=== PATIENT | female | born 1980 | race Caucasian/White ===

== ENCOUNTER 2022-03-14 13:53 | Emergency (ER) | payer OTHER, SELFPAY ==
--- NOTE | 2022-03-14 13:55 | ED.URI ---
HPI - URI/Sore Throat General Chief Complaint: Upper Respiratory Infection Stated Complaint: Sore Throat Time Seen by Provider: 03/14/22 14:30 Source: patient and RN notes reviewed Mode of arrival: ambulatory Limitations: no limitations History of Present Illness HPI Narrative: 41-year-old female presents with concern for sore throat, feels like she is swallowing razors . Reports she has had slight rhinorrhea. She reports her had similar symptoms. She reports has been feeling feverish, she has not taken her temperature. She denies cough, shortness of breath, nasal congestion, headache, gastrointestinal symptoms. MD elicited complaint: sore throat and rhinorrhea Related Data Home Medications Medication Instructions Recorded Confirmed levothyroxine 150 mcg capsule 150 mcg PO DAILY 03/14/22 03/14/22 rosuvastatin 10 mg tablet 10 mg PO DAILY 03/14/22 03/14/22 Allergies Allergy/AdvReac Type Severity Reaction Status Date / Time iohexol Allergy Dyspnea / Verified 03/14/22 14:15 [From contrast - CT, X-RAY] SOB Review of Systems Review of Systems: CONSTITUTIONAL: Reports malaise, tactile fever EYES: Denies visual changes, redness, or discharge. ENT: Reports rhinorrhea, sore throat, painful swallowing. Denies congestion, sinus pain, otalgia CARDIOVASCULAR: Denies chest pain, palpitations, or edema. RESPIRATORY: Denies cough. Denies dyspnea. GASTROINTESTINAL: Denies abdominal pain, nausea, vomiting, diarrhea SKIN: Denies rash or itching. MUSCULOSKELETAL: Denies myalgia. NEUROLOGIC: Denies headache. All systems reviewed & are unremarkable except as noted in HPI and below PMFSH Comments At time of signature, agree with nursing past medical, surgical, social and family history. There is no relevant family history pertinent to the presenting complaint Exam Narrative: GENERAL: Well-appearing, well-nourished, and in no acute distress. HEAD: Normocephalic EYES: PERRLA, conjunctivae clear ENT: Nares clear, clear discharge. Mucous membranes moist. TM pearly logan with dull light reflex bilaterally; no tragal tenderness. Oropharynx not erythematous without lesions. Tonsils not enlarged and without exudate, no drooling, no hoarseness, no trismus, uvula midline. NECK: Supple. No lymphadenopathy CHEST: Clear to auscultation, breath sounds equal. No wheezing, rhonchi, rales, or stridor. No respiratory distress, speaks in full sentences. HEART: Regular rate and rhythm. No murmur heard. SKIN: Warm, dry, no rash. NEURO: Alert and oriented x3. PSYCH: Normal mood and affect Course Course Emergency Course: Discussed benefits versus risks of paxlovid, patient would like to try paxlovid Patient is aware of diagnosis, understands and agrees to treatment plan. Anticipatory guidance given. Patient agrees to follow-up as directed and is aware of reasons to seek care at the emergency department. Portions of this record may have been created with voice recognition software Level of Care: Express Care Visit Vital Signs Vital signs: Vital Signs Temperature 100.1 F H 03/14/22 13:59 Pulse Rate 63 03/14/22 13:59 Respiratory Rate 18 03/14/22 13:59 Blood Pressure 115/74 03/14/22 13:59 Pulse Oximetry 100 03/14/22 13:59 Oxygen Delivery Room Air 03/14/22 13:59 Temperature 100.1 F H 03/14/22 13:59 Pulse Rate 63 03/14/22 13:59 Respiratory Rate 18 03/14/22 13:59 Blood Pressure 115/74 03/14/22 13:59 Pulse Oximetry 100 03/14/22 13:59 Oxygen Delivery Room Air 03/14/22 13:59 Reviewed. MDM - URI/Sore Throat MDM Narrative Medical decision making narrative: Differential diagnosis considered: Casarez virus, strep pharyngitis, allergic rhinitis, upper respiratory tract infection, sinusitis, rhinosinusitis, nasopharyngitis. viral pharyngitis, otitis media, otitis externa, pneumonia, bronchitis, viral cough syndrome, viral syndrome, and influenza. Exam findings show no acute concerns or changes; patient is
[2022-03-14 13:59] VITALS: BP 115/74; PULSE 63; RESP 18; TEMP 37.8; O2SAT 100
== END 2022-03-14 14:51 | disposition home or self-care (01) ==
PROVIDERS: Emergency Provider Nurse Practitioner; PCP Family Medicine
DX: U07.1 COVID-19 (principal); E03.9 Hypothyroidism, unspecified; J45.909 Unspecified asthma, uncomplicated; R01.1 Cardiac murmur, unspecified
CPT/HCPCS: 87081; 87426; 87880; 99203; C9803; G0463

== ENCOUNTER 2022-06-22 10:59 | Emergency (ER) | payer OTHER, SELFPAY ==
[2022-06-22 11:09] VITALS: BP 123/83; PULSE 86; RESP 16; TEMP 37.1; O2SAT 99
--- NOTE | 2022-06-22 12:18 | ED.URI ---
HPI - URI/Sore Throat General Chief Complaint: Upper Respiratory Infection Stated Complaint: cough fever congestion Time Seen by Provider: 06/22/22 12:18 Source: patient, RN notes reviewed and old records reviewed Mode of arrival: ambulatory Limitations: no limitations History of Present Illness HPI Narrative: 42-year-old female presents to the [facility] with complaints of cough, fever and congestion for 3 days. reports that she had 103 fever. Has taken Mucinex. MD elicited complaint: fever, cough and nasal congestion Related Data Home Medications Medication Instructions Recorded Confirmed levothyroxine 150 mcg capsule 150 mcg PO DAILY 03/14/22 06/22/22 rosuvastatin 10 mg tablet 10 mg PO DAILY 03/14/22 06/22/22 Allergies Allergy/AdvReac Type Severity Reaction Status Date / Time iohexol Allergy Dyspnea / Verified 06/22/22 11:28 [From contrast - CT, X-RAY] SOB Review of Systems Review of Systems: All systems reviewed & are unremarkable except as noted in HPI and below Constitutional: Constitutional: Reports as per HPI, Denies chills and Reports fever(s) Eyes: Eyes: Reports no additional eye complaints ENT: Reports as per HPI and Reports nasal congestion Cardiovascular: Cardiovascular: Reports no additional cardiovascular complaints Respiratory: Respiratory: Reports as per HPI, Reports chest congestion, Reports cough, Denies dyspnea and Denies wheezing Gastrointestinal: Gastrointestinal: Reports no additional gastrointestinal complaints Musculoskeletal: Musculoskeletal: Reports no additional musculoskeletal complaints Integumentary/Breasts: Skin/Breast: Reports system reviewed and no additional complaints, except as docu Neurologic: Reports system reviewed and no additional complaints, except as documented Psychiatric: Psychiatric: Reports no additional psychiatric complaints Allergic/Immunologic: Allergic/Immunologic: Reports no additional allergic/immunologic complaints PMFSH Social History Social History Smoking status: Current every day smoker Tobacco type: e-cigarettes/vaping Comments At the time of my signature, I reviewed and agree with the nursing past medical, surgical, social, and family history. There is no relevant family history pertinent to the patient complaint. Exam Const: General: healthy appearing, comfortable, no acute distress, well developed, alert and well nourished Nutritional Appearance: well nourished Orientation/consciousness: patient oriented x3 Limitations: no limitations HENMT: Head: normal to inspection Ears: external ears normal, TM's normal bilaterally and EAC's normal Face/Nose/Sinus: Normal external nose present and Normal nares present Face and sinus: normal facial exam Mouth: Yes Normal oral and palatal mucosa present, Yes lip normal and Yes moist mucous membranes Throat: posterior oropharynx normal and uvula midline Eyes: General: appearance normal, both eyes and all related structures Pupils: Equal, round and reactive pupils present Neck: Neck: normal visual inspection, full ROM, no lymphadenopathy and no meningeal signs Chest: Chest palpation & inspection: normal inspection of the chest Resp: Effort & Inspection: normal respiratory effort and no use of accessory muscles Auscultation: clear to auscultation bilaterally, no crackles, no rales, no rhonchi and no wheezes Cardio: Rate: regular rate Rhythm: regular rhythm Back/Spine/Pelvis: Cervical Spine: cervical ROM normal and No Cervical spine tenderness Thoracic/Lumbar Spine: thoracic and lumbar spine normal to inspection and thoraco-lumbar ROM normal Skin: General skin exam: normal color Rashes: no rashes Wounds: no wounds Neuro: General: patient oriented x3, moves all extremities, no meningeal signs and no focal motor deficits Cranial nerves: Yes Equal, round and reactive pupils present Speech: normal speech Gait exam (Neuro): Normal ga
== END 2022-06-22 12:30 | disposition home or self-care (01) ==
LOC: EXPBETH 11:01
PROVIDERS: Emergency Provider Nurse Practitioner; PCP Family Medicine
DX: J40 Bronchitis, not specified as acute or chronic (principal); F17.290 Nicotine dependence, other tobacco product, uncomplicated; R01.1 Cardiac murmur, unspecified; J45.909 Unspecified asthma, uncomplicated; E03.9 Hypothyroidism, unspecified
CPT/HCPCS: 87081; 87804; 87880; 99213; G0463

== ENCOUNTER 2022-11-03 11:52 | Emergency (ER) | payer OTHER, SELFPAY ==
[2022-11-03 11:56] VITALS: BP 136/108; PULSE 84; RESP 20; TEMP 36.5; O2SAT 97
--- NOTE | 2022-11-03 11:56 | ED.URI ---
HPI - URI/Sore Throat General Chief Complaint: Upper Respiratory Infection Stated Complaint: sinus/cough Time Seen by Provider: 11/03/22 11:56 Source: patient and RN notes reviewed History of Present Illness HPI Narrative: Patient is a 42-year-old female who presents to urgent care with complaints of headache, itchy throat, cough, clogged ear, sneezing. Patient states that it started 3 days ago and she has been taking Claritin since yesterday. Patient states her has been came in here yesterday was placed on antibiotics for his sinus infection. No other acute complaints. No acute distress noted. Patient aware of the plan of care. Some parts of this dictation were generated by voice recognition software and may contain typographical and/or grammatical inaccuracies. Related Data Home Medications Medication Instructions Recorded Confirmed levothyroxine 150 mcg capsule 150 mcg PO DAILY 03/14/22 11/03/22 rosuvastatin 10 mg tablet 10 mg PO DAILY 03/14/22 11/03/22 Allergies Allergy/AdvReac Type Severity Reaction Status Date / Time iohexol Allergy Dyspnea / Verified 11/03/22 11:59 [From contrast - CT, X-RAY] SOB Review of Systems Review of Systems: CONSTITUTIONAL: Reports of fever EYES: Denies visual changes, redness, or discharge. ENT: Reports of rhinorrhea, sore throat, drainage CARDIOVASCULAR: Denies chest pain, palpitations, or edema. RESPIRATORY: Reports cough without dyspnea GASTROINTESTINAL: Denies abdominal pain, nausea, vomiting, or diarrhea. GENITOURINARY: Denies dysuria or hematuria. SKIN: Denies rash or itching. MUSCULOSKELETAL: Denies back pain, joint pain, or myalgia. NEUROLOGIC: Denies headache, numbness, or weakness. All other systems reviewed are negative, except as documented in HPI. PMFSH Social History Social History Smoking status: Current every day smoker Tobacco type: e-cigarettes/vaping Comments At the time of my signature, I reviewed and agree with the nursing past medical, surgical, social, and family history. There is no relevant family history pertinent to the patient complaint. Exam Narrative: GENERAL: This is a well-nourished, well-developed patient, in no apparent distress. HEAD: normocephalic, atraumatic. EYES: PERRL. Sclera clear/white. Vision is grossly intact. EARS: External ears normal, auditory canals clear and without drainage, TMs normal without perforation. Hearing grossly intact. NOSE: External nose normal with no obvious nasal discharge, nares without redness, no rhinorrhea. THROAT: Mucous membranes moist, posterior pharynx clear. Moderate postnasal drainage NECK: Neck supple, non-tender without lymphadenopathy, masses or thyromegaly. CARDIOVASCULAR: Regular rate and rhythm without murmurs, gallops, or rubs. RESPIRATORY: Clear to auscultation. Breath sounds equal bilaterally. No wheezes, rales, or rhonchi. SKIN: warm, intact with no suspicious lesions or rash, good texture and turgor. NEURO: awake, alert, and oriented to person, place and time. There were no obvious focal neurologic abnormalities. EXTREMITIES: No clubbing, cyanosis, or edema. Course Course Level of Care: Express Care Visit Vital Signs Vital signs: Vital Signs Temperature 97.7 F 11/03/22 11:56 Pulse Rate 84 11/03/22 11:56 Respiratory Rate 20 11/03/22 11:56 Blood Pressure 136/108 H 11/03/22 11:56 Pulse Oximetry 97 11/03/22 11:56 Oxygen Delivery Room Air 11/03/22 11:56 Temperature 97.7 F 11/03/22 11:56 Pulse Rate 84 11/03/22 11:56 Respiratory Rate 20 11/03/22 11:56 Blood Pressure 136/108 H 11/03/22 11:56 Pulse Oximetry 97 11/03/22 11:56 Oxygen Delivery Room Air 11/03/22 11:56 Reviewed- Patient is informed that they may have pre-hypertension or hypertension based on a blood pressure reading in the department. I recommend the patient call the primary care provider listed on their discharge instruction
== END 2022-11-03 12:24 | disposition home or self-care (01) ==
PROVIDERS: Emergency Provider Nurse Practitioner Family; PCP Family Medicine
DX: J32.9 Chronic sinusitis, unspecified (principal); F17.290 Nicotine dependence, other tobacco product, uncomplicated
CPT/HCPCS: 99213; G0463

== ENCOUNTER 2025-05-03 16:33 | Emergency (ER) | payer OTHER, SELFPAY ==
--- OUTSIDE RECORDS SUMMARY | 2025-05-03 16:36 | XMS_ITS | Clinical Summary ---
Author Organization [facility] Address [address] [place] [address] Care Team Providers Care Communication Clerk Name Role Phone Fortunato Ruth MD Primary Care Provider [phone] Allergies Active Allergy Reactions Criticality Noted Date Comments Iodinated Contrast Media Chest tightness Medium Causes asthma attack Medications rosuvastatin (CRESTOR) 10 mg tablet Take 1 tablet (10 mg total) by mouth daily 2 Active levothyroxine (SYNTHROID) 150 mcg tablet TAKE 1 TABLET BY MOUTH EVERY DAY 90 tablet 3 Active ergocalciferol (VITAMIN D) 50,000 unit capsule 5 Active sertraline (ZOLOFT) 25 mg tablet Take 1 tablet (25 mg total) by mouth daily 4 Active naproxen (NAPROSYN) 500 mg tablet Take 1 tablet (500 mg total) by mouth 2 (two) times a day as needed 5 Active meloxicam (MOBIC) 7.5 mg tablet TAKE 1 TABLET BY MOUTH ONCE DAILY DIRECTED WITH FOOD 4 Active simethicone (GAS-X) 125 mg capsule Take 180 mg by mouth every 6 (six) hours as needed for flatulence Active pantoprazole DR (PROTONIX) 40 mg EC tablet Take 1 tablet (40 mg total) by mouth 2 (two) times a day 180 tablet 5 Active Active Problems Problem Noted Date Diagnosed Date Anxiety 11/10/2024 Belching 10/04/2024 Constipation 10/04/2024 Nausea 10/04/2024 Encounter for screening colonoscopy 10/04/2024 Vasomotor symptoms due to menopause 06/10/2023 Assessment & Plan (11/10/2024 12:34 PM CDT): Plan to check labs. Briefly discussed options, including SSRIs, supplement therapy, hormone replacement therapy, and Veozah. After review of labs, if patient would desire treatment with hormone replacement therapy, she is aware of the increased risks associated with HRT including DVT/PE and breast cancer. We also discussed the benefits of hormone replacement today as well. I did give her literature on Victoza to review. Plan to call patient with lab results, then we will further discuss treatment if desired. Assessment & Plan (06/10/2023 4:10 PM CDT): The patient presents today for evaluation of vasomotor symptoms and changes in her menses. We discussed options for treatment including herbal supplements in the way of black cohosh, Estroven, vitamin-E. We also discussed hormone replacement therapy and she was counseled on the increased risk of stroke, blood clots, heart disease and breast cancer. We also discussed a low-dose SSRI. Patient would like to try herbal supplements at this time. She is going to try this for 6 weeks. She is also due for an annual exam and will come back at that timeframe and we will discuss her response to the scir-cio-gkfohap supplements. The patient is agreeable to this plan. She will call with any further questions or concerns. Cholelithiasis 03/27/2020 Overview (03/27/2020): Added automatically from request for surgery [id number] Assessment & Plan (03/27/2020 10:47 AM CDT): Abnormal imaging with gallstones without cholecystitis as well as typical symptoms(except unable to recall eating as an aggravating factor). We discussed the likelyhood of resolution of symptoms after laparoscopic cholecystectomy in which graham ramirez was interested in. The procedure, risks, benefits, and post operative period were discussed with the patient to which she agrees. Epigastric pain 03/16/2020 Assessment & Plan (03/16/2020 11:56 AM CDT): Gets episodes where she feels squeezing pain in epigastric area into her mid back. She says this is often correlated with fatty foods. She also gets nausea and dry heaving with this. This occurs about four times a month and has been ongoing for over a year. Pt found to have cholelithiasis and mildly prominent CBD duct dilation. Will get CMP today to rule out stones in CBD. Depending on results of labs, will refer to surgery for consultation. BMI 32.0-32.9,adult 03/16/2020 Class 1 obesity due to exces s calories without serious comorbidity with body mass index (BMI) of 32.0 to 32.9 in adult 03/16/2020 Hepatic steatosis 03/16/2020 Assessment & Plan (03/16/2020 12:00 PM CDT): Pt noted to have mild hepatic steatosis on RUQ US. We discussed these findings and importance of exercise, diet, and weight loss. We talked about how to clean up her diet and eat healthy fats rather than saturated or trans fat. I told her if this is an ongoing thing, sometimes this can lead to cirrhosis which is why weight loss and exercise are so important. Pt also told to start fish oil daily. Pt verbalized understanding. Common bile duct dilatation 03/16/2020 Assessment & Plan (03/16/2020 12:01 PM CDT): Will obtain hepatic function panel today. Vitamin D deficiency 10/24/2019 Assessment & Plan (05/05/2023 2:18 PM CDT): Patient is not on Vitamin D - start Vitamin D3- 1000 international units once /day Assessment & Plan (2022 2:18 PM CDT): Patient is not on Vitamin D - start Vitamin D3- 1000 international units once /day Assessment & Plan (04/25/2021 2:32 PM CDT): Patient used to be on Vitamin D Rx - start Vitamin D3- 1000 international units once /day Assessment & Plan (04/12/2020 2:25 PM CDT): Patient used to be on Vitamin D Rx - start Vitamin D3- 1000 international units once /day Aerophagia 10/11/2019 Assessment & Plan (10/11/2019 1:36 PM MACHINE TOOL BUILDER): Pt c/o frequent burping. We discussed this is likely from swallowing air without realizing. Told to avoid gas producing foods, stop carbonated beverages, and eat slowly. Can try gas-x prn or edmond prior to meals. She was given handouts on foods to avoid. Defecation urgency 10/11/2019 Assessment & Plan (03/16/2020 11:57 AM CDT): Occurs after some meals, especially if she eats out. Pt says dicyclomine helps but forgets to take this. Encouraged to keep medication on her and take at least 30 minutes prior to meals. Assessment & Plan (10/11/2019 1:33 PM MACHINE TOOL BUILDER): Occurs shortly after eating. Dicyclomine prior to meals up to TID. 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 Encouraged patient to carry the medication with her or place in areas that would help remind her to take this. She should take at least 30 minutes before eating. She verbalized understanding. Refill sent in. Assessment & Plan (10/11/2019 1:32 PM MACHINE TOOL BUILDER): Pt has diarrhea about half an hour to 1 hour after eating. She has urgency and some cramping prior to BM's that goes away after defecation. Pt says she has had this since she was a teenager. Very suggestive of functional diarrhea. No worrisome signs. Will start on dicyclomine prior to meals up to TID. RUQ pain 10/11/2019 Assessment & Plan (03/16/2020 11:54 AM CDT): Pt says this pain only occurs when she bends down. She says she feels something pop out in this area and is painful. She says she pushes this back in and feels better afterwards. Pt unable to get this area to pop out. Upon exam, it was overall unremarkable. Pt says it was mildly tender in RUQ with palpation. Likely musculoskeletal related. Assessment & Plan (10/11/2019 1:37 PM MACHINE TOOL BUILDER): Pt is c/o occasional RUQ pain that only really occurs when she bends over or moves a certain way. Denies correlation with food or BM's. Suggestive of muscular, however, upon exam, liver feels as if it may be enlarged. Will get abdominal US. Numbness and tingling of lower extremity 020 Tremor 10/10/2019 Hypothyroidism 05/04/2012 Overview (11/13/2016): Hypothyroidism Assessment & Plan (05/05/2023 2:11 PM CDT): S/p treatment with RESENDEZ in 2011. Patient is clinically euthyroid TSH was normal at 0.36 on 04/29/23 Plan: Continue same dose of Levothyroxine The proper way of taking Levothyroxine reviewed with patient Check TSH on annual basis Assessment & Plan (2022 2:10 PM CDT): S/p treatment with RESENDEZ in 2011. Patient is clinically euthyroid TSH was high at 5.6 on 04/25/21 Plan: Continue same dose of Levothyroxine The proper way of taking Levothyroxine reviewed with patient Check TSH. I will adjust the dose based on lab results. Assessment & Plan (04/25/2021 2:33 PM CDT): S/p treatment with RESENDEZ in 2011. Patient is clinically euthyroid TSH was normal at 0.54 on 04/12/20 Plan: Continue same dose of Levothyroxine The proper way of taking Levothyroxine reviewed with patient Check TSH. I will adjust the dose based on lab results. Assessment & Plan (04/12/2020 2:24 PM CDT): S/p treatment with RESENDEZ in 2011. Patient is clinically euthyroid TSH was 0.6 on 04/14/19 Plan: Continue same dose of Levothyroxine The proper way of taking Levothyroxine reviewed with patient Check TSH. I will adjust the dose based on lab results. Resolved Problems Problem Noted Date Diagnosed Date Resolved Date Hyperthyroidism 02/09/2012 09/17/2017 Overview (11/13/2016): Hyperthyroidism Immunizations Immunization Administration Dates Next Due Tdap 12/03/2014 Surgical History Surgery Date Site/Laterality Comments TUBAL LIGATION Bilateral Tubal ligation LAPAROSCOPIC TUBAL LIGATION 08/10/2001 - 08/09/2002 Bila teral CHOLECYSTECTOMY 04/02/2020 BREAST BIOPSY 02/04/2022 Left COLONOSCOPY 12/05/2024 ESOPHAGOGASTRODUODENOSCOPY 12/05/2024 Medical History Medical History Date Comments Hx Other Medical 2002 restless leg sy ndrome Asthma Asthma Anxiety Cholecystitis Hypothyroidism Overweight GERD (gastroesophageal reflux disease) Family History Medical History Relation Name Comments Hyperthyroidism Brother Hyperthyroid ism; Thyroid disease Father's Sister Thyroid d isease; Esophageal cancer Maternal Grandfather Ca ncer -esophageal; Hyperlipidemia Mother Hyperlipidemi a; Thyroid disease Sister Thyroid dise ase; Relation Name Status Comments Brother Father's Sister Maternal Grandfather Mother Sister Social History Tobacco Use Types Packs/Day Years Used Date Smoking Tobacco: Former E-cigarettes Vaping Smokeless Tobacco: Former Tobacco Cessation:Counseling Given: Not Answered Alcohol Use Standard Drinks/Week Comments No 0 (1 standard drink = 0.6 oz pur e alcohol) Humiliation, Afraid, Rape, and Kick questionnair e Answer Date Recorded Within the last year, have y ou been afraid of your partner or ex-partner? No 07/20/2023 Within the last year, have y ou been humiliated or emotionally abused in other ways by your partner or ex-partner? No Within the last year, have y ou been kicked, hit, slapped, or otherwise physically hurt by your partner or ex-partner? No 07/20/2023 Within the last year, have y ou been raped or forced to have any kind of sexual activity by your partner or ex-partner? No 07/20/2023 AUDIT-C Answer Date Recorded Q1: How often do you have a drink containing alcohol? Never 12/19/2024 Q2: How many drinks containi ng alcohol do you have on a typical day when you are drinking? Patient does not drink Frequency of Binge Drinking Not on file 12/08 PHQ-2 Answer Date Recorded PHQ-2 Total Score (If total score is 3 or more points, staff should administer the PHQ-9) 2 11/10/2024 Personal Safety Answer Date Recorded Have you ever been in or are you currently in a harmful physical or emotional relationship or is someone making you feel afraid or unsafe? Denies 12/05/2024 Comments No Sex and Gender Information Value Date Recorded Sex Assigned at Not on file Legal Sex Female 7:38 PM MACHINE TOOL BUILDER Gender Identity Not on file Sexual Orientation Not on file Obstetrics History Para Term AB IAB SAB Ectopic Multiple Livin g Live Births 2 2 2 2 2 Date Outcome GA Total Labor Labor/2nd/3rd Weight Sex Type Anes PTL Cat A1 A5 Name Clin Term Vag-Spo nt Term Vag-Spo nt Last Filed Vital Signs Vital Sign Reading Time Taken Comments Blood Pressure 117/78 12/19/2024 1:41 PM CDT Pulse 62 12/19/2024 1:41 PM CDT Temperature 36.1 C (97 F) 12/05/2024 2:05 PM CDT Respiratory Rate 18 12/05/2024 2:05 PM CDT Oxygen Saturation 98% 12/19/2024 1:41 PM CDT Inhaled Oxygen Concentration - - Weight 86.2 kg (190 lb 1.6 oz) 12/19/2024 1:41 P M CDT Height 160 cm (5' 3) 12/19/2024 1:41 PM CDT Body Mass Index 33.67 12/19/2024 1:41 PM CDT Plan of Treatment Health Maintenance Due Date Last Done Comments Hepatitis C Screening 1980 Hepatitis B Screening 1997 Pneumococcal vaccine <65 (1 of 2 - PCV) 1998 Breast Cancer Screening-Mammogram 08/06/2024 08/06/2023, 12/12/2021, 12/25/2020, Additional history exists DTaP/Tdap/Td Vaccine (2 - Td or Tdap) 12/03/2024 12/03/2014 Influenza Vaccine (#1) 2025 Cervical Cancer Screening 11/10/20252024, 12/19/2021, 10/04/2019, Additional history exists Depression Screening 11/10/2025 11/10/2024, 07/20/2023, 12/19/2021, Additional history exists Regular Well Visit/Exam 18-64 11/10/2025 11/10/2024, 07/20/2023, 12/19/2021, Additional history exists Colon Cancer Screening-Colonoscopy 12/05/2034 12/05/2024 HPV Vaccines Aged Out No longer eligi ble based on patient's age to complete this topic Procedures Procedure Name Priority Date/Time Associated Diagnosis Comments COLONOSCOPY 12/05/2024 12:36 PM CDT PAP, REFLEX HPV Routine 11/10/2024 1:04 PM CDT Well woman exam DIAGNOSTIC MAMMOGRAM BILATERAL W CONCETTA Schedule Routine, Read Routine (OP Routine) 08/06/2023 2:04 PM MACHINE TOOL BUILDER Abnormal mammogram from Last 3 Months or Most Recently Relevant to Health Maintenance Results * Colonoscopy (12/05/2024 12:36 PM CDT) Anatomical Region Laterality Modality Other Narrative Procedure Note Reyna Holliday MD - 12/05/2024 12:36 PM CDT [facility] Patient Name: Martha Amin Procedure Date: 12/05/2024 12:36 PM Date of : 1980 Admit Type: Outpatient Age: 44 Gender: Female Attending MD: Reyna Holliday M.D. Room: [facility] ENDOSCOPY ROOM 1 Note Status: Finalized Patient Profile: This is a 44 year old female. No family history of colon cancer. She has occasional constipation Procedure: Colonoscopy Indications: Screening for colorectal malignant neoplasm, Thisis the patient's first colonoscopy Referring MD: Fortunato Ruth M.D. Providers: Reyna Holliday M.D. Impression: - One 9 mm polyp in the descending colon, removedwith a cold snare. Resected and retrieved. Clip (MR conditional) was placed. Clip payroll representative: [employer]. - Internal hemorrhoids. Recommendation: - Await pathology results. - Repeat colonoscopy in 3 years for surveillance. - Continue present medications. Medicines: Monitored Anesthesia Care Complications: No immediate complications. Estimated Blood Loss: Estimated blood loss: none. Procedure: Pre-Anesthesia Assessment: - Prior to the procedure, a History and Physicalwas performed, and patient medications and allergieswere reviewed. The patient's tolerance of previous anesthesia was also reviewed. The risks andbenefits of the procedure and the sedation options and risks were discussed with the patient. All questions were answered, and informed consent was obtained. Prior Anticoagulants: The patient has taken noanticoagulant or antiplatelet agents. ASA Grade Assessment: Per anesthesia note and evaluation. After reviewing the risks and benefits, the patient was deemed in satisfactory condition to undergo the procedure. - Prior to the procedure, a History and Physicalwas performed, and patient medications and allergieswere reviewed. The patient's tolerance of previous anesthesia was also reviewed. The risks andbenefits of the procedure and the sedation options and risks were discussed with the patient. All questions were answered, and informed consent was obtained. Prior Anticoagulants: The patient has taken noanticoagulant or antiplatelet agents. ASA Grade Assessment: Per anesthesia note and evaluation. After reviewing the risks and benefits, the patient was deemed in satisfactory condition to undergo the procedure. The benefits, risks and alternatives of theprocedure and sedation were discussed and informed consentwas obtained. All questions were answered. Please referto the signed informed consent document in the medical record. The bowel preparation used was Miralax and bisacodyl tablets via split dose instruction. The scope was passed under direct vision. The Pediatric Colonoscope PCF-H190L [id number] was introducedthrough the anus and advanced to the the cecum, identifiedby appendiceal orifice and ileocecal valve. Thequality of the bowel preparation was good. Bowel prep was administered using a split dose. Findings: The perianal and digital rectal examinations were normal. The cecum appeared normal. The rectum, sigmoid colon, transverse colon and ascending colonappeared normal. A 9 mm polyp was found in the descending colon. The polyp wassessile. The polyp was removed with a cold snare. Resection and retrieval were complete. To prevent bleeding after the polypectomy, one hemostaticclip was successfully placed (MR conditional). Clip payroll representative: [employer]. There was no bleeding at the end of the procedure. Internal hemorrhoids were found during retroflexion. The hemorrhoids were small. Electronically signed by Reyna Holliday M.D. Reyna Holliday M.D. 12/05/2024 1:49:00 PM Number of Addenda: 0 Note Initiated On: 12/05/2024 12:36 PM Procedure Code(s): --- Professional --- 04119, Colonoscopy, flexible; with removal of tumor(s), polyp(s), or other lesion(s) by snare technique Diagnosis Code(s): --- Professional --- Z12.11, Encounter for screening for malignant neoplasm of colon K64.8, Other hemorrhoids D12.4, Benign neoplasm of descending colon CPT copyright 2020 [place] [employer]. All rights reserved. The codes documented in this report are preliminary and upon string studies director reviewmay be revised to meet current compliance requirements. Recognized by the [place] [employer] for promoting quality in endoscopy Reyna Holliday MD ENDOSCOPY PROCEDURES Final Result * Pap, reflex HPV (11/10/2024 1:04 PM CDT) CLINICAL INFORMATION: Hunter Moran Comment:None given LMP Hunter Moran Comment:09/26/24 Previous Pap Hunter Moran Comment:None given Prev. Bx Hunter Moran Comment:None given SOURCE: Hunter Moran Comment:Cervix, Endocervix Pap, specimen adequacy Hunter Moran Comment: Satisfactory for evaluation. Endocervical/transformation zone component present. HPV interp Hunter Moran Comment: Cytology Results: Negative for intraepithelial lesion or malignancy. COMMENTS Hunter Moran Comment: This Pap test has been evaluated with computer assisted technology. Staff Nurse [facility] st Linh Moran Comment: PCM, CT(ASCP) CT Screening Location: [place] [address] [address] [place] [id number] Review icu specialist Hunter Moran Comment: TMK, CT(ASCP) CT screening location: [place] [address] [address] [place] [id number] Comment Hunter Moran Comment: EXPLANATORY NOTE: The Pap is a screening test for cervical cancer. It is not a diagnostic test and is subject to false negative and false positive results. It is most reliable when a satisfactory sample, regularly obtained, is submitted with relevant clinical findings and history, and when the Pap result is evaluated along with historic and current clinical information. Thin prep 11/10/2024 1:04 PM CDT 11/11/2024 2:11 AM CDT Lizabeth Mayorga CARDIOGRAPH OPERATOR LAB CYTOLOGY ORDERABLES Final Re sult [facility]PageToday[facility]ocelin Moran [facility] [place] [phone] * DIAGNOSTIC MAMMOGRAM BILATERAL W CONCETTA (08/06/2023 2:04 PM MACHINE TOOL BUILDER) Anatomical Region Laterality Modality Breast Bilateral Mammography 08/06/2023 2:46 PM MACHINE TOOL BUILDER Impressions 08/06/2023 2:46 PM MACHINE TOOL BUILDER 1. No suspicious change to the 0.3 cm circumscribed hypoechoic mass at the 12 o'clock position 5 cm from the nipple in the right breast. Finding is benign due to chronic stability. 2. No new suspicious mammographic finding either breast. OVERALL FINAL ASSESSMENT: BI-RADS Category 2: Benign. RECOMMENDATION: Annual screening mammography is recommended. Electronically signed by: Donna Godoy M.D. Narrative 08/06/2023 2:46 PM MACHINE TOOL BUILDER EXAMINATION: BILATERAL DIGITAL DIAGNOSTIC MAMMOGRAM INCLUDING CAD AND BILATERAL DIGITAL BREAST TOMOSYNTHESIS; RIGHT BREAST SONOGRAM HISTORY: Follow-up for probably benign mass of the right breast. History of benign biopsy of the left breast. COMPARISON: 02/04/2022, 12/12/2021, 12/25/2020, 12/10/2020 TECHNIQUE: Full field digital mammographic views of BOTH breasts were performed, including computer aided detection (CAD) and BILATERAL digital breast tomosynthesis (DBT). Directed ultrasound evaluation of the RIGHT breast was performed. BREAST PARENCHYMAL COMPOSITION: There are scattered areas of fibroglandular density. MAMMOGRAM FINDINGS: The small mass at the upper central mid right breast is mammographically stable. No new suspicious mammographic finding in either breast. Postbiopsy changes are noted in the left breast. SONOGRAM FINDINGS: The circumscribed hypoechoic mass at the 12 o'clock position 5 cm from the nipple in the right breast measures 0.2 x 0.3 x 0.3 cm. There is subtle posterior acoustic enhancement but no internal flow. This finding previously measured 0.2 x 0.3 x 0.3 cm. Nehal Guardado NP IMG MAMMO PROCEDURES Final Resul t from Last 3 Months or Most Recently Relevant to Health Maintenance [facility] Advance Directives For more information, please contact: [phone] * Full Code (Latest Code Status on File) Date Activated Date Inactivated Comments 12/05/2024 11:03 AM 12/05/2024 6:28 PM * Full Code Date Activated Date Inactivated Comments 12/05/2024 11:02 AM 12/05/2024 11:03 AM Care Teams Communication Clerk Relationship Specialty Start Date End Date Fortunato Ruth MD PCP - General 11/07/16
--- OUTSIDE RECORDS SUMMARY | 2025-05-03 16:38 | XMS_ITS | Clinical Summary ---
Author Organization [facility] Address [address] [place] [address] Phone Care Team Providers Care Maintenance Mechanic Telephone Name Role Phone Fortunato Ruth MD Primary Care Provider [phone] Allergies Active Allergy Reactions Criticality Noted Date Comments Iodinated Contrast Media Unknown 10/25/2024 Medications ergocalciferol (VITAMIN D) 52951 UNIT Capsule Take 50,000 Units by mouth. Active levothyroxine (SYNTHROID) 150 MCG Tablet Take 150 mcg by mouth daily. Active naproxen (NAPROSYN) 500 MG Tablet Take 500 mg by mouth 2 times daily (with meals). Active rosuvastatin (CRESTOR) 10 MG Tablet Take 10 mg by mouth daily. Active sertraline (ZOLOFT) 25 MG Tablet Take 25 mg by mouth daily. Active Family History Medical History Relation Name Comments Stroke Father Atrial fibrillation Mother Chronic Obstructive Pulmonary Disease Mother Emphysema Mother Hypertension Mother Relation Name Status Comments Father Mother Social History Tobacco Use Types Packs/Day Years Used Date Smoking Tobacco: Former Cigarettes S tarted: 08/10/1990 Smokeless Tobacco: Never Tobacco Cessation:Counseling Given: Not Answered Alcohol Use Standard Drinks/Week Comments Never 0 (1 standard drink = 0.6 oz pur e alcohol) Comments Unknown Sex and Gender Information Value Date Recorded Sex Assigned at Not on file Legal Sex Female 9:25 PM CDT Gender Identity Not on file Sexual Orientation Not on file Last Filed Vital Signs Vital Sign Reading Time Taken Comments Blood Pressure - - Pulse - - Temperature - - Respiratory Rate - - Oxygen Saturation - - Inhaled Oxygen Concentration - - Weight - - Height 160 cm (5' 3) 10/25/2024 9:21 AM CDT Body Mass Index - - Plan of Treatment Health Maintenance Due Date Last Done Comments Hepatitis C Virus (HCV) Screening 1979 Hepatitis B Immunization (1 of 3 - 19+ 3-dose series) 1998 Pap Smear 2000 Cervical Cancer Screening (CCS) 2009 HPV/Cotest 2009 Cologuard 2024 Immunochemical Fecal Occult Blood 2024 Mammogram 08/06/2024 08/06/2023, 05/0 12/2021, 12/25/2020, Additional history exists Influenza Immunization (#1) 2025 SARS-COV-2 Immunization ( season) 2025 Colonoscopy 12/05/2034 12/05/2024 Colorectal Cancer Screening 12/05/2034 Respiratory Syncytial Virus (RSV) Immunization (Adult) (1 - 1-dose 75+ series) 2054 DTaP/Tdap/Td Immunization Discontinued 12/03/2014 TdaP Immunization Completed 12/03/2014 Discussion re Starting/Frequency of Mammograms Completed 08/06/2023, 12/12/2021, 12/25/2020, Additional history exists Human Papillomavirus (HPV) Immunization Aged Out No longer eligible based on patient's age to complete this topic Meningococcal Immunization (ACWY) Aged Out No longer eligible based on patient's age to complete this topic Pneumococcal Immunization Combined Aged Out No longer eligible based on patient's age to complete this topic Rotavirus Immunization Aged Out No lo nger eligible based on patient's age to complete this topic Insurance [employer] Member Subscriber Plan / Payer (Ef fective for All Dates) Name:Martha Amin Member ID:Not on file Relation to Subscriber:Self Name:Martha Amin Subscriber ID:Not on file Payer ID:[id number] Group ID:Not on file Type:Not on file Address: [facility] [address] [place] [id number] Care Teams Maintenance Mechanic Telephone Relationship Specialty Start Date End Date Fortunato Ruth MD [address] [facility] [address] [place] [address] PCP - General Family Medicine 06/18/15
--- NOTE | 2025-05-03 16:45 | ED.EAR ---
HPI - Ear Problem General Chief complaint: Ear Stated complaint: Mouth Sore/Left Ear Pain Time Seen by Provider: 05/03/25 16:45 Source: patient Mode of arrival: ambulatory Limitations: no limitations History of Present Illness HPI Narrative: 45-year-old female presents with pain and swelling to roof her mouth. Patient states that feels like left side of cheek is swollen. Three days ago was eating chips without top dentures in. Cut roof of mouth. Now thinks she has infection. Afebrile. All systems reviewed and negative except as noted above. Related Data Home Medications ?Medication ?Instructions ?Recorded ?Confirmed ?Last Taken ?Type levothyroxine 150 mcg capsule 150 mcg PO DAILY 03/14/22 11/03/22 Unknown History rosuvastatin 10 mg tablet 10 mg PO DAILY 03/14/22 11/03/22 Unknown History gabapentin 100 mg capsule mg 05/03/25 Unknown History sertraline 50 mg tablet mg 05/03/25 Unknown History Allergies Allergy/AdvReac Type Severity Reaction Status Date / Time iohexol (From contrast - CT, Allergy Dyspnea / Verified 05/03/25 16:45 X-RAY) SOB PMFSH Social History Social History Smoking status: Current every day smoker Tobacco type: e-cigarettes/vaping Comments At time of signature, agree with nursing past medical, surgical, social and family history. There is no relevant family history pertinent to the presenting complaint. Exam Narrative: GENERAL: This is a well-nourished, well-developed patient, in no apparent distress. HEAD: normocephalic, atraumatic. EYES: PERRL. Sclera clear/white. Vision is grossly intact. EARS: External ears normal, auditory canals clear and without drainage, TMs normal without perforation. Hearing grossly intact. NOSE: External nose normal with no obvious nasal discharge, nares without redness, no rhinorrhea. Mouth: erythematous ulcer to roof of mouth with white to center. no fluctuance. tender on palpation. posterior pharnyx normal. NECK: Neck supple, non-tender without lymphadenopathy, masses or thyromegaly. CARDIOVASCULAR: Regular rate and rhythm without murmurs, gallops, or rubs. RESPIRATORY: Clear to auscultation. Breath sounds equal bilaterally. No wheezes, rales, or rhonchi. SKIN: warm, Dry, intact with no suspicious lesions or rash, good texture and turgor. NEURO: awake, alert, and oriented to person, place and time. There were no obvious focal neurologic abnormalities. EXTREMITIES: No joint tenderness, effusion, or edema noted. Course Course Level of Care: Express Care Visit Vital Signs Vital signs: Vital Signs Temperature 36.6 C 05/03/25 16:46 Pulse Rate 72 05/03/25 16:46 Respiratory Rate 16 05/03/25 16:46 Blood Pressure 119/72 05/03/25 16:46 Pulse Oximetry 95 05/03/25 16:46 Oxygen Delivery Room Air 05/03/25 16:46 Temperature 36.6 C 05/03/25 16:46 Pulse Rate 72 05/03/25 16:46 Respiratory Rate 16 05/03/25 16:46 Blood Pressure 119/72 05/03/25 16:46 Pulse Oximetry 95 05/03/25 16:46 Oxygen Delivery Room Air 05/03/25 16:46 Reviewed Medical Decision Making MDM Narrative Medical decision making narrative: will treat oral infection with augmention. Vital Signs Vital Signs: Vital Signs Temperature 36.6 C 05/03/25 16:46 Pulse Rate 72 05/03/25 16:46 Respiratory Rate 16 05/03/25 16:46 Blood Pressure 119/72 05/03/25 16:46 Pulse Oximetry 95 05/03/25 16:46 Oxygen Delivery Room Air 05/03/25 16:46 Temperature 36.6 C 05/03/25 16:46 Pulse Rate 72 05/03/25 16:46 Respiratory Rate 16 05/03/25 16:46 Blood Pressure 119/72 05/03/25 16:46 Pulse Oximetry 95 05/03/25 16:46 Oxygen Delivery Room Air 05/03/25 16:46 Discharge Plan Discharge Clinical Impression: Infected abrasion of oral mucosa Patient Disposition: Home Condition: Stable Instructions: Antibiotic Form, Mouth Care (ED) Additional Instructions: take antibiotic as prescribed until gone. Take Tylenol or ibuprofen every 6-8 hours as needed for pain. Follow-up with your primary care physician as needed. Patient Language: Italian Prescriptions: New amoxicillin-pot clavulanate 875-125 mg tablet 1 tablet PO Q12H 10 Days Qty: 20 0RF lidocaine 5 % ointment 1 applic topical QID PRN (Reason: mouth pain) Qty: 30 0RF No Action gabapentin 100 mg capsule sertraline 50 mg tablet rosuvastatin 10 mg Tablet 10 mg PO DAILY levothyroxine 150 mcg Capsule 150 mcg PO DAILY Follow-up/Referrals: Faraz,Fortunato Ortega MD [Primary Care Provider] Time of Disposition: 16:58
[2025-05-03 16:46] VITALS: BP 119/72; PULSE 72; RESP 16; TEMP 36.6; O2SAT 95
== END 2025-05-03 17:05 | disposition home or self-care (01) ==
PROVIDERS: Emergency Provider Nurse Practitioner Family; PCP Family Medicine
DX: S00.512A Abrasion of oral cavity, initial encounter (principal); L08.9 Local infection of the skin and subcutaneous tissue, unspecified; W45.8XXA Other foreign body or object entering through skin, initial encounter; F17.290 Nicotine dependence, other tobacco product, uncomplicated; E78.00 Pure hypercholesterolemia, unspecified; J45.909 Unspecified asthma, uncomplicated; E03.9 Hypothyroidism, unspecified; R01.1 Cardiac murmur, unspecified
CPT/HCPCS: 99213; G0463